=== PATIENT | male | born 1985 | race Caucasian/White ===

== ENCOUNTER 2021-10-08 08:46 | Day surgery (SDC) | payer BC ==
[~2021-10-08] VITALS: Ht 185.4 cm; Wt 113.6 kg
--- NOTE | 2021-10-08 12:47 | NUR ---
10/08/21 Rupali7 Gerri Shelby 1238 PATIENT IN PACU. REPORT RECIEVED FROM MEIR TELLEZ. PATIENT IS ON 10 LITERS TITRATED DOWN TO 6 LITERS VIA MASK. OPA IN PLACE. BREATHING EQUAL AND UNLABORED. OXYGEN SATURATIONS ABOVE 95%. SINUS RHYTHM ON TELE. SURGICAL SITES HAVE LITTLE AMOUNT OF DRAINAGE WITH STERI STRIPS ABOVE. SCD'S APPLIED. IVF INFUSING. 1242 OPA REMOVED. PATIENT AWAKE. DENIES ANY PAIN OR NAUSEA. BREATHING EQUAL AND UNLABORED. OXYGEN SATURATIONS ABOVE 95%. IVF INFUSING. 1243 OXYGEN TITRATED OFF TO ROOM AIR. BREATHING EQUAL AND UNLABORED. OXYGEN SATURATIONS ABOVE 95%.
[2021-10-08] MEDS ORDERED: IBUPROFEN600 MG PO (12:52)
[2021-10-08] MEDS ORDERED: OXYCODON-ACETA1 EAC2 PO (12:52)
[2021-10-08] MEDS ORDERED: ACETAMINOPHEN500 MG PO (12:52)
--- NOTE | 2021-10-08 13:44 | NUR ---
1310: PATIENT BACK IN DAY SURGERY ROOM FROM PACU. RATES PAIN /10. UMBILICIAL TROCAR SITE OOZING BLOOD TINGED FLUID. 3 OTHER LAP SITES WITH STERI STRIPS WNL. VS CHECKED. IV SITE WNL. SCDs ON. ICE WATER PLACED AT BEDSIDE. CALL LIGHT WITHIN REACH. 1320: PATIENT GIVEN JELLO TO EAT BEFORE TAKING PAIN MEDICATION. 1341: PATIENT MEDICATION FOR PAIN WITH 1 TAB OF PERCOCET. GIRLFRIEND AT BEDSIDE. CALL LIGHT WITHIN REACH.
--- NOTE | 2021-10-08 15:27 | NUR ---
1505: VS CHECKED. PATIENT ASSISTED OOB AND TO BATHROOM. GAIT STEADY. VOID WITHOUT DIFFICULTY APPROXIMATELY 575 ML OF YELLOW URINE. GAIT STEADY BACK TO ROOM. 1515: PATIENT GIVEN CRACKERS AND JELLO. PATIENT MEDICATED FOR PAIN WITH 1 TAB OF PERCOCET. IV DC'D WNL PER PATIENT REQUEST. TIP INTACT. DRESSING APPLIED. GIRLFRIEND IN ROOM TO ASSIST PATIENT TO GET DRESSED.
--- NOTE | 2021-10-08 16:01 | NUR ---
1600: PATIENT DRESSED AND READY FOR DISCHARGE. DISCHARGE INSTRUCTIONS GIVEN TO PATIENT AND GIRLFRIEND. UMBILICAL INCISION COVERED WITH GUAZE AND MEDIPORE TAPE DUE TO OOZING. PATIENT DISCHARGED TO HOME WITH GIRLFRIEND VIA WHEELCHAIR.
--- NOTE | 2021-10-08 21:23 | OR ---
[facility] [address] [place], [place] [address] Signed DATE OF OPERATION: 10/08/2021 SURGEON: Meir Meek MD PREOPERATIVE DIAGNOSIS: Chronic calculous cholecystitis. POSTOPERATIVE DIAGNOSIS: Chronic calculous cholecystitis. PROCEDURES: 1. Laparoscopic cholecystectomy with intraoperative cholangiogram. 2. Surgeon-directed fluoroscopy. ANESTHESIA: General endotracheal, Meir Iqbal CRNA and local 20 mL of 0.25% Marcaine with epinephrine. INDICATION: This 35-year-old white man is self-referred having been identified over 10 years ago elsewhere with findings of gallstones that at that time were symptomatic and recommendation was made for cholecystectomy. Overtime, he has had variable episodes of pain in the right upper abdomen. More recently, he has had increasing symptoms of right upper abdominal pain. He self-referred for consideration of cholecystectomy. A repeat gallbladder ultrasound was performed confirming at least two large gallstones 2.5 cm in size. There is no sign of intrahepatic ductal dilatation. Preoperative lab studies were normal. He is admitted at this time to undergo cholecystectomy preferred by laparoscopic approach understanding the risk of bleeding, infection, bile duct injury, need for open procedure and failure to cure his symptoms. Understand this, he wished to proceed. FINDINGS: The gallbladder was chronically inflamed. Omental adhesions were noted to the gallbladder itself. The liver itself was reasonably normal. The gallbladder once excised had two large 2.5 cm gallstones and chronic inflammatory change of the mucosa of the gallbladder. The cystic duct was quite small overall. Intraoperative cholangiogram was normal. There were no other findings of concern. DESCRIPTION OF PROCEDURE: The patient was brought to the operating room, given a general endotracheal anesthetic. Electronically Signed By: MEIR MEEK MD 10/08/212122 PATIENT NAME: RAFA NGO OPERATIVE REPORT DATE OF : 83 REPORT #: [id number] PHYSICIAN: MEIR MEEK MD PCP: NO PRIMARY CARE PHYSICIAN REPORT IS CONFIDENTIAL AND NOT TO BE RELEASED WITHOUT AUTHORIZATION [facility] [address] [place], [place] [address] Signed Preoperative antibiotic Ancef was given. Sequential compression device stockings were used and heparin subcutaneous administered. The abdomen was clipped and prepared with a chlorhexidine solution and draped sterilely. An infraumbilical incision was made and using an open Zulema cannula technique pneumoperitoneum achieved to a level of 14 mmHg of carbon dioxide gas. Intra-abdominal inspection showed no sign of ascites or carcinomatosis. The gallbladder was largely obscured from view due to omental adhesions in the subhepatic space. Three additional trocars were placed in usual configuration in the subxiphoid, right midclavicular, and right anterior axillary line. The gallbladder was gently elevated and the omental adhesions were taken down with blunt electrocautery dissection. This allowed for further elevation of the gallbladder cephalad. Once the omental adhesions were taken down, the grasping forceps was fixed to the table and the infundibulum grasped and retracted laterally. Using blunt electrocautery dissection, the triangle of Calot was dissected free ultimately identifying well a relatively small cystic duct and a typical cystic artery. Double clipping of the cystic artery was undertaken and was divided. At this point, the triangle of Calot was well demonstrated with critical view of safety. A clip was applied across the gallbladder cystic duct junction and a transverse choledochotomy made in the cystic duct. Egress of clear bile was noted. Using the Schulte type cholangiocatheter intraoperative cholangiography was undertaken showing free flow of contrast in biliary tree with prompt emptying into the duodenum. There was no sign of biliary anomaly, filling defect or other abnormality. The catheter was removed and the cystic duct was triply clipped and divided. The gallbladder was then dissected free in a retrograde fashion. A artery was clipped along the course of dissection as well. The gallbladder had a very small rent in the apex without spillage of gallbladder contents too much. An endobag was used to extract the gallbladder through the infraumbilical port site. The gallbladder was opened on the back table and found have chronic inflammatory change of the mucosa and two large gallstones, 2.5 cm each in size. Irrigation was undertaken in subhepatic space. Excess irrigation fluid was suctioned free. There was no sign of bleeding in the hepatic bed. Photographs were taken. Excess irrigation was suctioned free over the liver and trocars were then removed under direct visualization showing no sign of bleeding. Infraumbilical fascial incision was reapproximated with interrupted 0 Vicryl suture. A 20 mL of 0.25% Marcaine with epi was injected locally for postoperative analgesia. The skin was closed with interrupted 3-0 Vicryl. Steri-Strips were applied. The patient was ultimately extubated and transferred to the recovery room in good condition having suffered no complications. Sponge, needle, and instrument counts were reported as correct x3. Meir Meek MD Electronically Signed By: MEIR MEEK MD 10/08/21 2123 PATIENT NAME: RAFA NGO SOHAIL OPERATIVE REPORT DATE OF : 83 REPORT #: [id number] PHYSICIAN: MEIR MEEK MD PCP: NO PRIMARY CARE PHYSICIAN REPORT IS CONFIDENTIAL AND NOT TO BE RELEASED WITHOUT AUTHORIZATION [address] [place] [address] Signed /[facility] /[id number] Copies: ~ Electronically Signed By: MEIR MEEK MD 10/08/212122 PATIENT NAME: RAFA NGO OPERATIVE REPORT DATE OF : 83 REPORT #: [id number] PHYSICIAN: MEIR MEEK MD PCP: NO PRIMARY CARE PHYSICIAN REPORT IS CONFIDENTIAL AND NOT TO BE RELEASED WITHOUT AUTHORIZATION
--- NOTE | 2021-10-14 11:22 | PATH ---
[facility] [address] [facility] [place], [place] [address] Signed SPECIMEN(S): A GALLBLADDER WITH STONES SPECIMEN SOURCE: A. GALLBLADDER WITH STONES CLINICAL HISTORY: Biliary colic. FINAL PATHOLOGIC DIAGNOSIS: Gallbladder, cholecystectomy: - Chronic cholecystitis. - Cholelithiasis. NAL:cml:C2NR MICROSCOPIC EXAMINATION: Histologic sections of all submitted blocks are examined by light microscopy. These findings, together with the gross examination, support the pathologic diagnosis. GROSS DESCRIPTION: The specimen, labeled "CS, A," and designated on the requisition "gallbladder with stones," is received in formalin and consists of Specimen: Previously opened gallbladder. Dimensions: 7.7 x 4.8 x 1.7 cm. Serosa: Raygoza and smooth. Cystic Duct: Unobstructed, margin inked black and shaved. Calculi: Two green-brown calculi (2.2 and 2.8 cm in greatest dimension). Mucosa: Green and velvety to trabeculated. Wall thickness: 1.1 cm. Lymph node: No pericystic lymph nodes are grossly identified. Additional: None. Computer Hardware Developer sections are submitted in cassette (A1). AC (under the direct supervision of a pathologist) The Gross Description was prepared using a voice recognition system. The report was reviewed for accuracy; however, sound-alike word errors, addition and/or deletions may occur. If there is any question about this report, please contact Client Services. PERFORMING LABORATORY: The technical component was performed by [employer], [address] [place] [id number] (CLIA# [id number]). Professional interpretation was PATIENT NAME: RAFA NGO PATHOLOGY DATE OF : 83 REPORT #: [id number] PHYSICIAN: [facility] PCP: NO PRIMARY CARE PHYSICIAN REPORT IS CONFIDENTIAL AND NOT TO BE RELEASED WITHOUT AUTHORIZATION [facility] [address] [place], [place] [address] Signed performed by [facility], [address] [address] (CLIA# [id number]). Diagnostician: Latasha Denton MD Pathologist Electronically Signed 10/14/2021 Copies: ~ PATIENT NAME: RAFA NGO PATHOLOGY DATE OF : 83 REPORT #: [id number] PHYSICIAN: [facility] PCP: NO PRIMARY CARE PHYSICIAN REPORT IS CONFIDENTIAL AND NOT TO BE RELEASED WITHOUT AUTHORIZATION
== END 2021-10-08 16:00 | disposition home or self-care (01) ==
LOC: DS 08:46
PROVIDERS: ATTEND Surgery
PROC: BF12YZZ Fluoroscopy of Gallbladder using Other Contrast (ICD-10-PCS; 2021-10-08)
PROC: 0FT44ZZ Resection of Gallbladder, Percutaneous Endoscopic Approach (ICD-10-PCS; principal; 2021-10-08 10:40)
DX: K80.10 Calculus of gallbladder with chronic cholecystitis without obstruction (principal)
CPT/HCPCS: 74300; J0330; J0360; J0690; J1100; J1644; J1885; J2250; J2405; J2704; J2765; J3010; J7121; Q9967

== ENCOUNTER 2024-03-22 16:51 | Emergency (ER) | payer BC ==
[~2024-03-22] VITALS: Ht 185.4 cm; Wt 130.0 kg
[~2024-03-22 16:51] MED LIST: ACETAMINOPHEN500 MG PO; IBUPROFEN600 MG PO; OXYCODON-ACETA1 EAC2 PO
[2024-03-22 17:22] LABS: BASOPHILS 0.7 % (0-2); HEMATOCRIT 45.2 % (35.0-50.0); HEMOGLOBIN 15.3 g/dL (12.0-18.0); LYMPHOCYTES 22.3 % (24-44); MCH 30.8 (27-36); MCHC 33.9 g/dl (30-36); MCV 91.1 fl (81-99); MONOCYTES 6.5 % (0-12); NEUTROPHILS 69.5 % (39-80); PLATELET COUNT 225 K/uL (140-440); RBC 4.96 M/ul (4.3-5.7); RDW 14.3 (10.5-15.0)
[2024-03-22 17:31] LABS: ALBUMIN 3.8 g/dL (3.4-5.0); ALBUMIN/GLOBULIN RATIO 0.93 (1.1-2.4); ANION GAP 15.7 (7-21); BILIRUBIN, TOTAL 0.9 ng/dL (0.2-1.0); BUN/CREATININE RATIO 14.28 (6.0-28.6); CREATININE, SERUM 0.7 mg/dL (0.70-1.30); MAGNESIUM 1.6 mg/dL (1.8-2.4); POTASSIUM 3.7 mmol/L (3.5-5.1); PROTEIN, TOTAL 7.9 g/dL (6.4-8.2)
[2024-03-22 19:24] LABS: BILIRUBIN, URINE NEGATIVE (negative); BLOOD/HGB, URINE NEGATIVE (Negative); KETONE, URINE NEGATIVE (Negative); LEUK ESTERASE, URINE NEGATIVE (negative); NITRITE, URINE NEGATIVE (negative)
[2024-03-22] MEDS ORDERED: MECLIZINE HCL 25 MG TAB PO ONE (21:45)
[2024-03-22] MEDS ORDERED: MECLIZINE HCL25 MG PO (23:07)
[2024-03-22] MEDS ORDERED: LACTATED RINGER'S 1,000 ML IV ONE (23:15)
[2024-03-22] MEDS ORDERED: FAMOTIDINE 20 MG/ 2 ML VIAL IV ONE (23:15)
[2024-03-22] MEDS ORDERED: ondansetron HCL 4 MG/2 ML VIAL IV ONE (23:15)
[2024-03-23] MEDS ORDERED: ONDANSETRON ODT4 MG PO (01:15)
[2024-03-23] MEDS ORDERED: ONDANSETRON 4 MG HOME.PACK SL ONE (01:15)
[2024-03-23 01:27] VITALS: BP 177/99
== END 2024-03-23 01:28 | disposition home or self-care (01) ==
LOC: ED 16:51
PROVIDERS: Emergency Medicine
DX: H81.10 Benign paroxysmal vertigo, unspecified ear (principal)
CPT/HCPCS: 36415; 80053; 81003; 83735; 85025; 96361; 96374; 96375; 99284-25; A9270; J2405; J7121